=== PATIENT | female | born 1950 | race Two or more races ===

== ENCOUNTER 2021-08-14 17:07 | Emergency (ER) | payer BC ==
[~2021-08-14] VITALS: Ht 157.5 cm; Wt 71.7 kg
--- NOTE | 2021-08-14 17:17 | NUR ---
SENT TO ER BED 8. BIB [facility] 88 FROM HOME,GENERALIZED WEAKNESS,ON & OFF DIARRHEA AND ABDOMINAL CRAMPING SINCE 0200. ATTACHED TO MONITOR. WARM BLANKET PROVIDED FOR COMFORT. AWAITING MD GARG.
[2021-08-14] MEDS ORDERED: ONDANSETRON HCL/PF 4 MG/2 ML VIAL ONE (17:44)
[2021-08-14 17:58] LABS: BASOPHILS % (AUTO) 0.1 % (0.0-2.0); HEMATOCRIT 39 % (33-45); HEMOGLOBIN 13.3 g/dL (11.5-14.8); LYMPHOCYTES # (AUTO) 0.4 K/uL (0.8-4.8); LYMPHOCYTES % (AUTO) 5.3 % (20.0-44.0); MEAN CORPUSCULAR HGB CONC 34 g/dl (31.0-36.0); MEAN CORPUSCULAR VOLUME 87 fL (82-100); MONOCYTES # (AUTO) 0.7 K/uL (0.1-1.30); MONOCYTES % (AUTO) 9.8 % (2.0-12.0); NEUTROPHILS # (AUTO) 6.1 K/uL (1.8-8.9); NEUTROPHILS % (AUTO) 84.8 % (43.0-81.0); PLATELET COUNT (AUTO) 198 K/uL (150-450); RED BLOOD CELL COUNT(AUTO) 4.47 MIL/uL (4.0-5.2); WHITE BLOOD COUNT (AUTO) 7.2 K/uL (4.3-11.0)
[2021-08-14] MEDS ORDERED: ONDANSETRON HCL/PF 4 MG/2 ML VIAL IVP ONE (18:00)
[2021-08-14] MEDS ORDERED: IV NS 0.9% 1,000 ML BAG IV ONE (18:00)
[2021-08-14 18:14] LABS: ALBUMIN 2.9 g/dL (3.4-5.0); BILIRUBIN,DIRECT 0.2 mg/dL (0.0-0.2); BILIRUBIN,TOTAL 1.4 mg/dL (0.2-1.0); CALCIUM, SERUM 8.1 mg/dL (8.5-10.1); CREATININE 0.6 mg/dL (0.6-1.3); POTASSIUM 3.7 mmol/L (3.5-5.1); TOTAL PROTEIN, SERUM 6.1 g/dL (6.4-8.2)
[2021-08-14] MEDS ORDERED: ONDA4TAB11 PO (18:33)
[2021-08-14] MEDS ORDERED: LOPE-195 PO (18:33)
[2021-08-14 18:57] VITALS: BP 112/60
--- NOTE | 2021-08-14 18:57 | NUR ---
IV removed. Catheter intact and site benign. Pressure and 4x4 applied to site. No bleeding noted.Patient discharged to home in stable condition. Written and verbal after care instructions given. Patient verbalizes understanding of instruction.
== END 2021-08-14 18:58 | disposition home or self-care (01) ==
LOC: ER 17:13
DX: A08.4 Viral intestinal infection, unspecified (principal); Z60.2 Problems related to living alone; Z79.899 Other long term (current) drug therapy
CPT/HCPCS: 36415; 80048; 80076; 83690; 85025; 96361; 96374; 99283; J2405; J7030